=== PATIENT | male | born 1945 | race Caucasian/White ===

== ENCOUNTER 2016-04-22 11:40 | Observation (INO) | payer OTHER ==
[2016-04-22] VITALS (8 sets, daily range): BP systolic 141–179; BP diastolic 70–84; PULSE 67–78; RESP 18–21; TEMP 97.4–98.9; O2SAT 93–97
[~2016-04-22] VITALS: Ht 170.2 cm; Wt 79.6 kg
[~2016-04-22 11:40] MED LIST: ALBU0.63 IN; COMBAER INH; EZET10 PO; GLYB1TAB50 PO; GUAI100S6 PO; LISI-357 PO; METO50TA PO; MUCI600T PO; NITR.4 SL; OMEP20TA PO; PRAV40TA PO; PRED20 PO; ZITH250T PO; [UNRECOGNIZED DRUG - CODE] PO
--- NOTE | 2016-04-22 13:31 | PD ---
HPI Chief Complaint: chest pain Time Seen by Provider: 13:29 Travel History International Travel<30 days: No Contact w/Intl Traveler<30days: No History of Present Illness HPI Patient is a 71-year-old male with history of hypertension, diabetes, coronary disease, hyperlipidemia, CABG who presents to emergency room with complaints of chest pain. Patient reports that last night, he had some left-sided shoulder pain which radiates to his neck. Patient reports that symptoms lasted for a short time and resolved by the time he woke up this morning. Patient reports that prior to coming to the emergency room, he began to have some left-sided chest pain. Patient reports that he had sharp stabbing pains to his left chest , reports that he felt nauseous and diaphoretic with his symptoms. Reports that he has had heart attacks in the past, reports that symptoms were not similar to todays symptoms as they were less pronounced. Patient reports that he does follow with Dr. Ballard with cardiology and does report having a CABG with quadruple bypass in 2004. Patient reports that he currently is chest pain-free at this time. PFSH Past Medical History Asthma: Yes High Cholesterol: Yes Chest Pain: Yes Coronary Artery Disease: Yes Diabetes: Yes Hypertension: Yes Respiratory: Yes Past Surgical History Coronary Artery Bypass Graft: Yes Social History Alcohol Use: No Tobacco Use: No Substance Use: No Allergies-Medications (Allergen,Severity, Reaction): Coded Allergies: Oxycodone (Verified Allergy, Intermediate, Nausea/Vomiting, 04/22/16) Reported Meds & Prescriptions Reported Meds & Active Scripts Active Reported Atorvastatin (Atorvastatin Calcium) 10 Mg Tab 10 Mg PO HS Bupropion HCl 100 Mg Tab 100 Mg PO BID Temazepam 30 Mg Cap 30 Mg PO HS PRN Omeprazole 20 Mg Tab 20 Mg PO DAILY Lisinopril 5 Mg Tab 5 Mg PO DAILY Metformin (Metformin HCl) 500 Mg Tab 500 Mg PO BIDPC With meals Review of Systems Cardiovascular: Positive: Chest Pain or Discomfort, Diaphoresis Respiratory: Positive: Shortness of Breath Physical Exam Narrative GENERAL: No acute distress, nontoxic SKIN: Warm and dry. HEAD: Atraumatic. Normocephalic. EYES: Pupils equal and round. No scleral icterus. No injection or drainage. ENT: No nasal bleeding or discharge. Mucous membranes pink and moist. NECK: Trachea midline. No JVD. CARDIOVASCULAR: Regular rate and rhythm. No murmur appreciated. RESPIRATORY: No accessory muscle use. Clear to auscultation. Breath sounds equal bilaterally. GASTROINTESTINAL: Abdomen soft, non-tender, nondistended. Hepatic and splenic margins not palpable. MUSCULOSKELETAL: No obvious deformities. No clubbing. No cyanosis. No edema. NEUROLOGICAL: Awake and alert. No obvious cranial nerve deficits. Motor grossly within normal limits. Normal speech. PSYCHIATRIC: Appropriate mood and affect; insight and judgment normal. Data Data Last Documented VS Vital Signs Date Time Temp Pulse Resp B/P Pulse Ox O2 Delivery O2 Flow Rate FiO2 04/22/16 14:40 70 20 141/84 96 04/22/16 13:33 Nasal Cannula 04/22/16 13:29 98.9 Orders Aspirin Chew (Aspirin Chew) (04/22/16 13:45) Complete Blood Count With Diff (04/22/16 13:30) Comprehensive Metabolic Panel (04/22/16 13:30) Creatine Kinase (Cpk) (04/22/16 13:30) Troponin I (04/22/16 13:30) Act Partial Throm Time (Ptt) (04/22/16 13:30) Prothrombin Time / Inr (Pt) (04/22/16 13:30) Chest, Single Ap (04/22/16 ) Iv Access Insert/Monitor (04/22/16 13:30) Oxygen Administration (04/22/16 13:30) Ecg Monitoring (04/22/16 13:30) CKMB (04/22/16 12:30) CKMB% (04/22/16 12:30) Admit Order (Ed Use Only) (04/22/16 15:02) Labs Laboratory Tests Test 04/22/16 12:30 White Blood Count 4.2 TH/MM3 Red Blood Count 4.39 MIL/MM3 Hemoglobin 12.9 GM/DL Hematocrit 38.7 % Mean Corpuscular Volume 88.0 FL Mean Corpuscular Hemoglobin 29.3 PG Mean Corpuscular Hemoglobin 33.3 % Concent Red Cell Distribution Width 13.4 % Platelet Count 185 TH/MM3 Mean Platelet Volume 10.0 FL Neutrophils (%) (Auto) 75.2 % Lymphocytes (%) (Auto) 13.1 % Monocytes (%) (Auto) 10.1 % Eosinophils (%) (Auto) 0.9 % Basophils (%) (Auto) 0.7 % Neutrophils # (Auto) 3.2 TH/MM3 Lymphocytes # (Auto) 0.6 TH/MM3 Monocytes # (Auto) 0.4 TH/MM3 Eosinophils # (Auto) 0.0 TH/MM3 Basophils # (Auto) 0.0 TH/MM3 CBC Comment DIFF FINAL Differential Comment Prothrombin Time 11.1 SEC Prothromb Time International 1.0 RATIO Ratio Activated Partial 25.2 SEC Thromboplast Time Sodium Level 139 MEQ/L Potassium Level 3.9 MEQ/L Chloride Level 103 MEQ/L Carbon Dioxide Level 24.2 MEQ/L Anion Gap 12 MEQ/L Blood Urea Nitrogen 18 MG/DL Creatinine 1.00 MG/DL Estimat Glomerular Filtration 73 ML/MIN Rate Random Glucose 152 MG/DL Calcium Level 8.4 MG/DL Total Bilirubin 0.7 MG/DL Aspartate Amino Transf 26 U/L (AST/SGOT) Alanine Aminotransferase 26 U/L (ALT/SGPT) Alkaline Phosphatase 91 U/L Total Creatine Kinase 316 U/L Creatine Kinase MB 3.1 NG/ML Creatine Kinase MB % 1.0 % Troponin I LESS THAN 0.02 NG/ML Total Protein 7.3 GM/DL Albumin 3.7 GM/DL [facility] Medical Decision Making Medical Screen Exam Complete: Yes Emergency Medical Condition: Yes Interpretation(s) EKG at 1152: NSR at 66bpm, qt/qtc: 408/418, no acute st or t wave changes, diffuse t wave inversion Differential Diagnosis Chest pain, arrhythmia, ACS, electrolyte abnormality, PE, pneumothorax Narrative Course Patient is a 71-year-old male with history of coronary disease, hypertension, diabetes, hyperlipidemia, CABG with quadruple bypass in 2004, presents to emergency room with complaints of chest pain. Patient reports that last night, he had an episode of left-sided shoulder pain which radiates to his neck, reports that he had complete resolution of those symptoms this morning. Reports that he also had some left-sided chest pain today, reports pain is a sharp and stabbing pains to his chest which lasted a few minutes and resolved on its own. Patient reports that his son who is a nurse made him come to the emergency for evaluation as he has significant coronary disease. Patient with no chest pain at this time. EKG obtained upon presentation to emergency room. EKG at 1152 shows normal sinus rhythm at 66 bpm, QT/QTc 408/418, patient with T-wave inversions with no acute ST changes. Patient was placed on a bricklayer helper. Labs as well as cardiac enzymes, x-ray chest ordered. Well give patient a baby aspirin. Will continue to monitor patient CBC & BMP Diagram 04/22/16 12:30 Chest x-ray with no acute disease case reviewed with Dr. Medeiros who accepts pt to chest pain center Diagnosis Primary Impression: Chest pain Qualified Code: R07.9 - Chest pain, unspecified type Admitting Information Admitting Physician Requests: Observation Mary Andrews DO Apr 22, 2016 13:31
[2016-04-22 13:36] LABS: APTT (PATIENT) 25.2 SEC (24.3-30.1); PROTHROMBIN TIME - PATIENT 11.1 SEC (9.8-11.6)
[2016-04-22 13:38] LABS: AUTOMATED NEUTROPHIL # 3.2 TH/MM3 (1.8-7.7); BASOPHIL % 0.7 % (0.0-2.0); EOSINOPHIL % 0.9 % (0.0-4.0); HEMATOCRIT 38.7 % (39.0-51.0); HEMO FLAGS DIFF FINAL; LYMPH % 13.1 % (9.0-44.0); LYMPHOCYTE # 0.6 TH/MM3 (1.0-4.8); MEAN CORPUSCULAR HEMOGLOBIN 29.3 PG (27.0-34.0); MEAN CORPUSCULAR HGB CONC 33.3 % (32.0-36.0); MONO % 10.1 % (0.0-8.0); NEUT % 75.2 % (16.0-70.0); PLATELET COUNT 185 TH/MM3 (150-450); RED BLOOD COUNT 4.39 MIL/MM3 (4.50-5.90); RED CELL DISTRIBUTION WIDTH 13.4 % (11.6-17.2); WHITE BLOOD COUNT 4.2 TH/MM3 (4.0-11.0)
[2016-04-22] MEDS ORDERED: BUPR100T4 PO (13:40)
[2016-04-22] MEDS ORDERED: METF500T PO (13:40)
[2016-04-22] MEDS ORDERED: OMEP20TA PO (13:40)
[2016-04-22] MEDS ORDERED: LISI-519 PO (13:40)
[2016-04-22] MEDS ORDERED: TEMA30CA PO (13:40)
[2016-04-22] MEDS ORDERED: ATOR10TA15 PO (13:40)
[2016-04-22 13:41] LABS: CHLORIDE 103 MEQ/L (98-107); POTASSIUM 3.9 MEQ/L (3.5-5.1); SODIUM (NA) 139 MEQ/L (136-145)
[2016-04-22 13:45] LABS: ANION GAP 12 MEQ/L (5-15); BICARBONATE 24.2 MEQ/L (21.0-32.0); BLOOD UREA NITROGEN 18 MG/DL (7-18)
[2016-04-22] MEDS ORDERED: ASPIRIN 81 MG CHEW TAB PO ONE (13:45)
[2016-04-22 13:48] LABS: ALT (GPT) 26 U/L (12-78); AST (GOT) 26 U/L (15-37); GLOMERULAR FILTRATION RATE 73 ML/MIN (>89)
[2016-04-22 13:49] LABS: TOTAL BILIRUBIN ADULT 0.7 MG/DL (0.2-1.0)
[2016-04-22 13:51] LABS: ALKALINE PHOSPHATASE 91 U/L (45-117); CREATINE KINASE 316 U/L (39-308)
[2016-04-22 14:03] LABS: CKMB 3.1 NG/ML (0.5-3.6)
[2016-04-22] MEDS ORDERED: TEMAZEPAM 15 MG CAP PO PRN (15:00)
[2016-04-22] MEDS ORDERED: DEXTROSE 50% IN WATER 50 ML VIAL(D50) IV PUSH PRN (15:00)
[2016-04-22] MEDS ORDERED: SODIUM CHLORIDE 0.9% FLUSH 5 ML FLUSH IVF PRN (15:00)
[2016-04-22] MEDS ORDERED: NITROGLYCERIN 0.4 MG SL 25 TABS/BTL SL PRN (15:00)
[2016-04-22] MEDS ORDERED: MORPHINE SULFATE 4 MG/ML INJ IV PRN (15:00)
[2016-04-22] MEDS ORDERED: GLUCAGON 1 MG/ML VIAL OTHER PRN (15:00)
[2016-04-22] MEDS ORDERED: ACETAMINOPHEN 500 MG CPLT PO PRN (15:00)
--- NOTE | 2016-04-22 15:09 | HHI.HP ---
[facility] Primary Care Physician Anton Dailey MD Admission Diagnosis Diagnoses: Chief Complaint: Chest pain History of Present Illness Patient is a 71-year-old gentleman with a history of hypertension, diabetes and coronary artery disease with a heart bypass in 2004 who came to the emergency room today complaining of one day of left-sided chest pain which was severe and radiating to his back. He thought it was gas and took a nap and went to bed however he woke up sweaty and dizzy and felt as if he was balance only came to the emergency room. Patient has had cardiac enzymes and EKG done which not show any acute coronary events on my review. He does have a recent increase in postnasal drip and cough for which she was given Flonase by his primary care doctor. There's been no fevers or chills. Patient at this time is chest pain- free. He took aspirin but does not correlate that with any improvement in his symptoms. There is no aggravating factors in his symptoms. Patient's been admitted to the chest pain unit for further evaluation of atypical chest pain and patient multiple risk factors. Review of Systems Constitutional: COMPLAINS OF: Diaphoretic episodes, Dizziness, DENIES: Fatigue , Fever, Weight gain, Weight loss, Chills, Change in appetite, Night Sweats Endocrine: DENIES: Heat/cold intolerance, Polydipsia, Polyuria, Polyphagia Eyes: DENIES: Blurred vision, Diplopia, Eye inflammation, Eye pain, Vision loss , Photosensitivity, Double Vision Ears, nose, mouth, throat: DENIES: Tinnitus, Hearing loss, Vertigo, Nasal discharge, Oral lesions, Throat pain, Hoarseness, Ear Pain, Running Nose, Epistaxis, Sinus Pain, Toothache, Odynophagia Respiratory: COMPLAINS OF: Cough, DENIES: Apneas, Snoring, Wheezing, Hemoptysis, Sputum production, Shortness of breath Cardiovascular: COMPLAINS OF: Chest pain, DENIES: Palpitations, Syncope, Dyspnea on Exertion, PND, Lower Extremity Edema, Orthopnea, Claudication Gastrointestinal: DENIES: Abdominal pain, Black stools, Bloody stools, Constipation, Diarrhea, Nausea, Vomiting, Difficulty Swallowing, Anorexia Genitourinary: DENIES: Sexual dysfunction, Urinary frequency, Urinary incontinence, Urgency, Hematuria, Dysuria, Nocturia, Penile Discharge, Testicular Pain, Testicular Swelling Musculoskeletal: COMPLAINS OF: Back pain, DENIES: Joint pain, Muscle aches, Stiffness, Joint Swelling, Neck pain Integumentary: DENIES: Abnormal pigmentation, Nail changes, Pruritus, Rash Hematologic/lymphatic: DENIES: Bruising, Lymphadenopathy Immunologic/allergic: DENIES: Eczema, Urticaria Neurologic: DENIES: Abnormal gait, Headache, Localized weakness, Paresthesias, Seizures, Speech Problems, Tremor, Poor Balance Psychiatric: DENIES: Anxiety, Confusion, Mood changes, Depression, Hallucinations, Agitation, Suicidal Ideation, Homicidal Ideation, Delusions Past Family Social History Past Medical History Coronary artery disease Depression Diabetes mellitus Hypertension Past Surgical History cabg 2005 Colon resection right ankle Barretts esophagus Reported Medications Reviewed and the medical record, recently started Flonase for of cough and postnasal drip per his primary doctor Allergies: Coded Allergies: Oxycodone (Verified Allergy, Intermediate, Nausea/Vomiting, 04/22/16) Active Ordered Medications Reviewed in the medical record Family History Mother at 81, father at 55 motor vehicle accident, sister was 70 and from constipation as of multiple medical problems including diabetes and hypertension Social History He is a , lives with his 3 sons, no tobacco or alcohol Physical Exam Vital Signs Vital Signs Date Time Temp Pulse Resp B/P Pulse Ox O2 Delivery O2 Flow Rate FiO2 04/22/16 14:40 70 20 141/84 96 04/22/16 13:37 70 20 142/72 94 04/22/16 13:33 Nasal Cannula 04/22/16 13:29 98.9 71 20 150/74 96 Physical Exam GENERAL: This is a well-nourished, well-developed patient, in no apparent distress. SKIN: No rashes, ecchymoses or lesions. Cool and dry. HEAD: Atraumatic. Normocephalic. No temporal or scalp tenderness. EYES: Pupils equal round and reactive. Extraocular motions intact. No scleral icterus. No injection or drainage. ENT: Nose without bleeding, purulent drainage or septal hematoma. Throat without erythema, tonsillar hypertrophy or exudate. Uvula midline. Airway patent. NECK: Trachea midline. No JVD or lymphadenopathy. Supple, nontender, no meningeal signs. CARDIOVASCULAR: Regular rate and rhythm without murmurs, gallops, or rubs. RESPIRATORY: Clear to auscultation. Breath sounds equal bilaterally. No wheezes , rales, or rhonchi. GASTROINTESTINAL: Abdomen soft, non-tender, nondistended. No hepato-splenomegaly , or palpable masses. No guarding. MUSCULOSKELETAL: Extremities without clubbing, cyanosis, or edema. No joint tenderness, effusion, or edema noted. No calf tenderness. Negative Homans sign bilaterally. NEUROLOGICAL: Awake and alert. [place]/hearing aides. Motor and sensory grossly within normal limits. Five out of 5 muscle strength in all muscle groups. Normal speech. Laboratory Laboratory Tests Test 04/22/16 12:30 White Blood Count 4.2 Red Blood Count 4.39 Hemoglobin 12.9 Hematocrit 38.7 Mean Corpuscular Volume 88.0 Mean Corpuscular Hemoglobin 29.3 Mean Corpuscular Hemoglobin 33.3 Concent Red Cell Distribution Width 13.4 Platelet Count 185 Mean Platelet Volume 10.0 Neutrophils (%) (Auto) 75.2 Lymphocytes (%) (Auto) 13.1 Monocytes (%) (Auto) 10.1 Eosinophils (%) (Auto) 0.9 Basophils (%) (Auto) 0.7 Neutrophils # (Auto) 3.2 Lymphocytes # (Auto) 0.6 Monocytes # (Auto) 0.4 Eosinophils # (Auto) 0.0 Basophils # (Auto) 0.0 CBC Comment DIFF FINAL Differential Comment Prothrombin Time 11.1 Prothromb Time International 1.0 Ratio Activated Partial 25.2 Thromboplast Time Sodium Level 139 Potassium Level 3.9 Chloride Level 103 Carbon Dioxide Level 24.2 Anion Gap 12 Blood Urea Nitrogen 18 Creatinine 1.00 Estimat Glomerular Filtration 73 Rate Random Glucose 152 Calcium Level 8.4 Total Bilirubin 0.7 Aspartate Amino Transf 26 (AST/SGOT) Alanine Aminotransferase 26 (ALT/SGPT) Alkaline Phosphatase 91 Total Creatine Kinase 316 Creatine Kinase MB 3.1 Creatine Kinase MB % 1.0 Troponin I LESS THAN 0.02 Total Protein 7.3 Albumin 3.7 Result Diagram: 04/22/16 1230 04/22/16 1230 Assessment and Plan Problem List: (1) Chest pain ICD Code: R07.9 Status: Acute Plan: Atypical and with risk factors including age, previous cardiac history, diabetes and hypertension Patient will require stress testing. He does follow-up with Dr. Crain or We'll follow cardiac enzymes and EKG Morphine, oxygen, nitroglycerin, aspirin as needed for symptom control CPK is somewhat elevated, will add IV fluids for mild rhabdomyolysis (2) DM2 (diabetes mellitus, type 2) ICD Code: E11.9 Status: Acute Plan: We'll hold metformin, continue with sliding scale insulin Assessment and Plan We'll continue with Flonase for his postnasal drip. Follow up with supportive care for any coughing symptoms. Continue medications for Roca's esophagus and for hypertension which are currently controlled Code Status Full code Discussed Condition With Patient, ER M.D. 10 Problem Qualifiers (1) Chest pain: Qualified Code: R07.9 - Chest pain, unspecified type Henrietta Medeiros MD Apr 22, 2016 15:09
[2016-04-22] MEDS: INSULIN NovoLIN REGULAR SUPPLEMENTAL SCALE SQ SCH ×2 (16:00→21:00)
[2016-04-22 16:06] LABS: CREATINE KINASE 265 U/L (39-308)
[2016-04-22 16:19] LABS: CKMB 2.6 NG/ML (0.5-3.6)
[2016-04-22] MEDS: SODIUM CHLOR 0.9% 1000 ML INJ 1,000 ML IV SCH ×2 (16:23→18:00)
[2016-04-22 20:16] LABS: CREATINE KINASE 237 U/L (39-308)
[2016-04-22 20:28] LABS: CKMB 2.3 NG/ML (0.5-3.6)
[2016-04-22] MEDS: buPROPion HCL 100 MG TAB PO SCH (21:00)
[2016-04-22] MEDS ORDERED: ATORVASTATIN 10 MG TAB PO SCH (21:00)
[2016-04-22] MEDS: SODIUM CHLORIDE 0.9% FLUSH 5 ML FLUSH IVF SCH (21:00)
[2016-04-23] VITALS: BP 152/77; PULSE 70; RESP 18; TEMP 96.9; O2SAT 97
[2016-04-23 04:00] VITALS: BP 142/85; PULSE 65; RESP 18; TEMP 96.2; O2SAT 96
[2016-04-23] MEDS: INSULIN NovoLIN REGULAR SUPPLEMENTAL SCALE SQ SCH ×2 (06:07→11:00)
[2016-04-23 08:00] VITALS: BP 157/93; PULSE 65; RESP 20; TEMP 97.3; O2SAT 97
--- NOTE | 2016-04-23 08:12 | HHI.PR ---
Subjective Remarks Follow up for chest pain. Patient is pain-free at this time. Denies any shortness of breath. Patient has a cough which started one week ago but it is dry. He initially states he had a stress test over 1 year ago at the [facility] which was negative, but then later tells me he had a stress test either last year or the year prior at [facility], but he cannot remember. Objective Vitals Vital Signs Date Time Temp Pulse Resp B/P Pulse Ox O2 Delivery O2 Flow Rate FiO2 04/23/16 04:00 96.2 65 18 142/85 96 04/23/16 00:00 96.9 70 18 152/77 97 04/22/16 20:00 97.5 78 18 155/82 97 04/22/16 20:00 74 04/22/16 19:45 93 21 04/22/16 18:11 96 21 04/22/16 18:00 97.4 67 21 179/79 96 04/22/16 15:40 76 20 145/70 95 04/22/16 14:40 70 20 141/84 96 04/22/16 13:37 70 20 142/72 94 04/22/16 13:33 Nasal Cannula 04/22/16 13:29 98.9 71 20 150/74 96 I/O 04/22/16 04/22/16 04/22/16 04/23/16 04/23/16 04/23/16 07:00 15:00 23:00 07:00 15:00 23:00 Intake Total 240 ml 1033 ml Output Total 150 ml Balance 90 ml 1033 ml Intake Oral 240 ml 240 ml IV Total 793 ml Output Urine Total 150 ml # Voids 3 2 # Bowel Movements 0 0 Result Diagram: 04/22/16 1230 04/22/16 1230 Objective Remarks GENERAL: Elderly well-nourished well-developed patient in no apparent distress. SKIN: Warm and dry. CARDIOVASCULAR: Regular rate and rhythm. RESPIRATORY: No accessory muscle use. Clear to auscultation. Breath sounds equal bilaterally. GASTROINTESTINAL: Abdomen soft, non-tender, nondistended. MUSCULOSKELETAL: No lower extremity edema. NEUROLOGICAL: Awake and alert.Motor grossly within normal limits. Normal speech. PSYCHIATRIC: Normal mood and affect. Urinary Catheter: No Vascular Central Line Catheter: No A/P Problem List: (1) Chest pain ICD Code: R07.9 Status: Acute (2) DM2 (diabetes mellitus, type 2) ICD Code: E11.9 Status: Acute (3) Hypertension, uncontrolled ICD Code: I10 Status: Acute Assessment and Plan Chest Pain -Atypical and with risk factors including age, previous cardiac history, diabetes and hypertension -EKGs [address]-T changes in the inferior and lateral leads as well as V4. EKG from May 2010 is unable to be opened for review. -Troponin 3 less than 0.02. -Sees Dr. Mckenzie. Patient cannot recall exactly when his last stress test was. Will try to obtain records from [facility], but likely will have to order new stress test. -Morphine, oxygen, nitroglycerin, aspirin as needed for symptom control -CPK is somewhat elevated, continue V fluids for mild rhabdomyolysis. Repeat CPK pending. Diabetes mellitus, Type 2 -Hold metformin for stress test -Continue with bedside Accu-Cheks and sliding scale insulin HTN, uncontrolled: BP has been elevated. -Continue home lisinopril -Clonidine prn SBP >160 or DBP >90. Continue with Flonase for his postnasal drip. Follow up with supportive care for any coughing symptoms. Continue medications for Roca's esophagus, HLD. Myocardial perfusion scan negative. EF of 55%. Results discussed with patient. Telemetry had one episode of tachycardia but otherwise no acute changes. Discharge disposition: Home in stable condition. Diet: Heart healthy, diabetic Activity: Regular Medications: BP has been persistently elevated since arrival. Increase Lisinopril to 10 mg by mouth daily. Continue other home meds. Follow-up: PCP Dr. Dailey one week. Problem Qualifiers (1) Chest pain: Qualified Code: R07.9 - Chest pain, unspecified type Ariadna Villanueva Apr 23, 2016 08:12
[2016-04-23 08:50] VITALS: PULSE 60
[2016-04-23] MEDS: buPROPion HCL 100 MG TAB PO SCH (08:50)
[2016-04-23] MEDS: SODIUM CHLORIDE 0.9% FLUSH 5 ML FLUSH IVF SCH (08:51)
[2016-04-23] MEDS ORDERED: PANTOPRAZOLE SOD 20 MG DELAYED RELEASE TAB PO SCH (09:00)
[2016-04-23] MEDS ORDERED: LISINOPRIL 5 MG TAB PO SCH (09:00)
[2016-04-23 09:19] VITALS: O2SAT 96
[2016-04-23 12:00] VITALS: BP 163/86; PULSE 68; RESP 20; TEMP 97.2; O2SAT 95
[2016-04-23] MEDS ORDERED: REGADENOSON INJ 0.4 MG/5 ML SYR IV ONE (12:03)
--- NOTE | 2016-04-23 13:52 | RADHPO ---
EXAM DATE/TIME: 04/23/2016 12:10 [facility] COMPARISON: No previous studies available for comparison. INDICATIONS : Left shoulder pain radiating to the left neck later having left chest pain with nausea and diaphoresi s. Abnormal EKG. DOSE: 25.3 mCi Tc99m Myoview at stress. 8 mCi Tc99m Myoview at rest. 0.4 mg Lexiscan STRESS SYMPTOMS: None noted. EJECTION FRACTION: 55% MEDICAL HISTORY : Diabetes mellitus type 2. Hypertension. SURGICAL HISTORY : CABG ENCOUNTER: Initial ACUITY: 2 days PAIN SCALE: 5/10 LOCATION: Left chest TECHNIQUE: The patient underwent pharmacologic stress with infusion of prescribed dose. Continuous ECG tracing was monitored during stress. Gated SPECT imaging was performed after stress and conventional SPECT i maging was performed at rest. The examination was performed on a SPECT/CT scanner, both attenuation and non-corrected datasets were reviewed. FINDINGS: DISTRIBUTION: The maximum perfused segment at stress is in the lateral wall. PERFUSION STUDY: The pattern of perfusion at stress is within normal limits. GATED STUDY: There is intact wall motion and thickening without hypokinetic or dyskinetic segments. CONCLUSION: No areas of ischemia are seen. RISK CATEGORY: Low (<1% Annual Mortality Rate) Guanaco Rodríguez MD on April 23, 2016 at 13:49 Board Certified Radiologist. This report was verified electronically.
[2016-04-23] MEDS ORDERED: LISI10TA3 PO (15:19)
--- NOTE | 2016-04-23 15:20 | HHI.DCPOC ---
Discharge Care Plan Diagnosis: (1) Chest pain (2) Hypertension, uncontrolled Your Health Problems Are: Chest Pain Goals to Promote Your Health * To prevent worsening of your condition and complications * To maintain your health at the optimal level Directions to Meet Your Goals Take your medications as prescribed Follow your dietary instruction Follow activity as directed Keep your appointments as scheduled Take your immunizations and boosters as scheduled If your symptoms worsen call your PCP, if no PCP go to Urgent Care Center or Emergency Room Smoking is Dangerous to Your Health. Avoid second hand smoke Call the 24-hour hour crisis hotline for domestic abuse at Ariadna Villanueva Apr 23, 2016 15:20
--- NOTE | 2016-04-23 15:21 | TR ---
Date Performed: 04/23/2016 Time Performed: 12:20:20 DOCTOR: Anton East DRUG LIST: CLINICAL HISTORY: REASON FOR TEST: Chest pain REASON FOR ENDING: OBSERVATION: CONCLUSION: Lexiscan stress test was performed under standard four minute protocol. Radionuclid e was injected one minute prior to ending the test. No electrocardiographic abormalities were present to suggest ischemia. Nuclear imaging and interpretation are pending. COMMENTS:
--- NOTE | 2016-04-23 15:24 | EKG ---
Date Performed: 04/22/2016 Time Performed: 19:19:20 PTAGE: 71 years EKG: Sinus rhythm Extensive ST-T changes are nonspecific PACs Borderline ECG PREVIOUS TRACING : 04/22/2016 15.32 Since previous tracing, no significant change noted DOCTOR: Anton East Interpretating Date/Time 04/23/2016 15:22:46
--- NOTE | 2016-04-23 15:27 | EKG ---
Date Performed: 04/22/2016 Time Performed: 15:32:04 PTAGE: 71 years EKG: Sinus rhythm . Extensive T wave changes are nonspecific Borderline ECG NO PREVIOUS TRACING DOCTOR: Anton East Interpretating Date/Time 04/23/2016 15:26:41
--- NOTE | 2016-04-23 15:29 | EKG ---
Date Performed: 04/22/2016 Time Performed: 11:52:08 PTAGE: 71 years EKG: Sinus rhythm . Nonspecific ST and T wave abnormalities Abnormal ECG Since PREVIOUS TRACING , no significant change noted DOCTOR: Anton East Interpretating Date/Time 04/23/2016 15:28:50
[2016-04-23] MEDS ORDERED: cloNIDine HCL 0.1 MG TAB PO PRN (15:30)
--- NOTE | 2016-04-26 14:53 | RADHPO ---
EXAM DATE/TIME: 04/22/2016 12:12 [facility] COMPARISON: No previous studies available for comparison. INDICATIONS : Chest pain for 5 days, cough for 2 weeks MEDICAL HISTORY : None. SURGICAL HISTORY : CABG. ENCOUNTER: Initial ACUITY: 4 - 6 days PAIN SCORE: 5/10 LOCATION: Bilateral chest FINDINGS: The patient is status post sternotomy. The heart size is normal. The lungs are grossly clear. No effu lawrence is seen. CONCLUSION: No acute disease. Guanaco Rodríguez MD on April 22, 2016 at 12:36 Board Certified Radiologist. This report was verified electronically.
== END 2016-04-23 15:15 | disposition home or self-care (01) ==
LOC: PHED 11:40 → PHEDA 15:03 → PH3B 17:35
PROVIDERS: ADMIT Hospitalist; ATTEND Hospitalist
DX: R07.89 Other chest pain (principal); I25.10 Atherosclerotic heart disease of native coronary artery without angina pectoris; I10 Essential (primary) hypertension; E78.5 Hyperlipidemia, unspecified; K22.70 Barrett's esophagus without dysplasia; E11.9 Type 2 diabetes mellitus without complications; J45.909 Unspecified asthma, uncomplicated; E78.00 Pure hypercholesterolemia, unspecified; F32.9 Major depressive disorder, single episode, unspecified; Z88.8 Allergy status to other drugs, medicaments and biological substances; Z95.1 Presence of aortocoronary bypass graft
CPT/HCPCS: 71010; 78452; 80053; 82550; 82552; 82948; 84484; 85025; 85610; 85730; 93005; 93017; 99285; A9502; G0378; J2785; J7030

== ENCOUNTER 2016-08-17 13:48 | Emergency (ER) | payer OTHER ==
[~2016-08-17] VITALS: Ht 170.2 cm; Wt 81.0 kg
[~2016-08-17 13:48] MED LIST changes: -ALBU0.63 IN; +ATOR10TA15 PO; +BUPR100T4 PO; -COMBAER INH; -EZET10 PO; -GLYB1TAB50 PO; -GUAI100S6 PO; -LISI-357 PO; +LISI10TA3 PO; +METF500T PO; -METO50TA PO; -MUCI600T PO; -NITR.4 SL; -PRAV40TA PO; -PRED20 PO; +TEMA30CA PO; -ZITH250T PO; -[UNRECOGNIZED DRUG - CODE] PO
[2016-08-17 13:56] VITALS: BP 182/85; PULSE 65; RESP 16; TEMP 98.6; O2SAT 96
--- NOTE | 2016-08-17 14:22 | PD ---
HPI Chief Complaint: Fall Time Seen by Provider: 13:45 Travel History International Travel<30 days: No Contact w/Intl Traveler<30days: No Traveled to known affect area: No History of Present Illness HPI 71-year-old male presents emergency department for evaluation the posterior had black status post fall from a ladder prior to arrival. Patient reports he was approximately 4-5 steps up on the ladder when the ladder broke causing him to fall onto his back hitting his head. He denies loss of consciousness. Patient is not anticoagulated. Patient is reporting posterior head pain and low back pain. He denies headache, visual changes, chest pain, shortness of breath, abdominal pain, numbness/tingling/weakness in extremities. PFSH Past Medical History Asthma: Yes High Cholesterol: Yes Chest Pain: Yes Coronary Artery Disease: Yes Diabetes: Yes Hypertension: Yes Respiratory: Yes Past Surgical History Coronary Artery Bypass Graft: Yes Social History Alcohol Use: No Tobacco Use: No Substance Use: No Allergies-Medications (Allergen,Severity, Reaction): Coded Allergies: Oxycodone (Verified Allergy, Intermediate, Nausea/Vomiting, 04/22/16) Reported Meds & Prescriptions Reported Meds & Active Scripts Active Lisinopril 10 Mg Tab 10 Mg PO DAILY Reported Atorvastatin (Atorvastatin Calcium) 10 Mg Tab 10 Mg PO HS Bupropion HCl 100 Mg Tab 100 Mg PO BID Temazepam 30 Mg Cap 30 Mg PO HS PRN Omeprazole 20 Mg Tab 20 Mg PO DAILY Metformin (Metformin HCl) 500 Mg Tab 500 Mg PO BIDPC With meals Review of Systems Except as stated in HPI: all other systems reviewed are Neg General / Constitutional: No: Fever Eyes: No: Visual changes HENT: Positive: Other (posterior head pain at the site of the laceration), No : Headaches Physical Exam Narrative GENERAL: [Alert, elderly male in no acute distress.] SKIN: Focused skin assessment warm/dry. 2 x 3 cm avulsion skin injury to the scalp bleeding well controlled. HEAD: Normocephalic. EYES: Pupils equal and round. No scleral icterus. No injection or drainage. ENT: No nasal bleeding or discharge. Mucous membranes pink and moist. NECK: Trachea midline. No JVD. No cervical spine tenderness CARDIOVASCULAR: Regular rate and rhythm. No murmur appreciated. CHEST: No chest wall or rib tenderness. No crepitus. RESPIRATORY: No accessory muscle use. Clear to auscultation. Breath sounds equal bilaterally. GASTROINTESTINAL: Abdomen soft, non-tender, nondistended. Hepatic and splenic margins not palpable. MUSCULOSKELETAL: No obvious deformities. No clubbing. No cyanosis. No edema. No point tenderness in all 4 extremities. 2+ distal pulses. No deformity. No physical signs of trauma. NEUROLOGICAL: Awake and alert. No obvious cranial nerve deficits. Motor grossly within normal limits. Normal speech. 5 out of 5 strength in upper and lower extremities PSYCHIATRIC: Appropriate mood and affect; insight and judgment normal. Data Data Last Documented VS Vital Signs Date Time Temp Pulse Resp B/P Pulse Ox O2 Delivery O2 Flow Rate FiO2 08/17/16 16:10 75 16 185/88 100 Room Air 08/17/16 13:[address] Cerv Spine W/O Contrast (08/17/16 ) Ct Brain W/O Iv Contrast(Rout) (08/17/16 ) Spine, Lumbar Comp W/Obliq (08/17/16 ) Ondansetron Inj (Zofran Inj) (08/17/16 15:45) Acetaminophen (Tylenol) (08/17/16 16:00) MDM Medical Decision Making Medical Screen Exam Complete: Yes Emergency Medical Condition: Yes Differential Diagnosis Closed head injury, ICH, cervical fracture, cervical strain, lumbar strain, lumbar fracture Narrative Course 71-year-old male presents emergency Department status post fall from a ladder. Patient was approximately 4 rungs. He fell backwards after the ladder broke hitting his head and low back. He denies loss of consciousness. Patient is not anticoagulated. She is alert and oriented. His physical exam is reassuring. He has an avulsion skin injury to the posterior portion of his head. Bleeding is well-controlled. Patient has no chest, abdomen, pelvic pain. CT scan of the brain, cervical spine and x-ray lumbar spine pending. Nursing staff report the patient became nauseous while being wheeled over to CAT scan he vomited small amounts of liquid 2 times. Patient was reevaluated after CAT scans. He denies nausea and reports only moderate pain low back. Normal neuro exam. CT of brain: No acute intra-cranial abnormality. CT cervical spine: Negative for fracture. Lumbar spine x-ray: Negative for fracture. Diagnostic findings discussed with patient. The wound was cleansed and dressed. He was given a copy of his CAT scan report and instructed to follow up with his primary care doctor regarding the incidental finding. Patient was reporting no pain at this time. Tylenol was ordered patient reports he doesn't need it. Patient ambulate in room without difficulty. He is stable for discharge. Diagnosis Primary Impression: Closed head injury Qualified Code: S09.90XA - Closed head injury, initial encounter Additional Impressions: Lumbar strain Qualified Code: S39.012A - Lumbar strain, initial encounter Laceration of scalp Qualified Code: S01.01XA - Laceration of scalp, initial encounter Referrals: Primary Care Physician Additional Instructions: Take Tylenol as needed for pain. Medical clinic for follow-up with her primary care physician. Return to emergency department if he developed new or worsening symptoms such as severe headache, neck pain, chest or abdominal pain. You're CT scan of the brain showed a small area of decreased density in the left lateral ventricle. Recommended an outpatient MRI. You were given a reported this scan please follow up with her primary care doctor. Disposition: 01 DISCHARGE HOME Condition: Stable Deanna Dickey Aug 17, 2016 14:22
--- NOTE | 2016-08-17 15:12 | RADRPT ---
EXAM DATE/TIME: 08/17/2016 14:44 [facility] COMPARISON: No previous studies available for comparison. INDICATIONS : Fall from ladder. Posterior head/neck pain. RADIATION DOSE: 56.35 CTDIvol (mGy) MEDICAL HISTORY : Hypertension. Cardiovascular disease SURGICAL HISTORY : CABG ENCOUNTER: Initial ACUITY: 1 day PAIN SCALE: 3/10 LOCATION: occipital TECHNIQUE: Multiple contiguous axial images were obtained of the head. Using automated exposure control and adj ustment of the mA and/or kV according to patient size, radiation dose was kept as low as reasonably a chievable to obtain optimal diagnostic quality images. DICOM format image data is available electro nically for review and comparison. FINDINGS: CEREBRUM: The ventricles are normal for age. There is bilateral cortical atrophy. No evidence of midline shift, mass lesion, hemorrhage. There is a small area decreased density adjacent to the anterior left later al ventricle. No extra-axial fluid collections are seen. POSTERIOR FOSSA: The cerebellum and brainstem are intact. The 4th ventricle is midline. The cerebellopontine angle i s unremarkable. EXTRACRANIAL: The visualized portion of the orbits is intact. SKULL: The calvaria is intact. No evidence of skull fracture. CONCLUSION: 1. No acute intracranial hemorrhage. 2. Small area of decreased density adjacent to the anterior left lateral ventricle. This is suggestiv e of either a subacute or old infarct. Recommend MRI of the brain with and without contrast for furth er evaluation. This can be performed on a nonemergent outpatient basis. Beni Shearer MD on August 17, 2016 at 15:07 Board Certified Radiologist. This report was verified electronically.
--- NOTE | 2016-08-17 15:27 | RADRPT ---
EXAM DATE/TIME: 08/17/2016 15:11 [facility] COMPARISON: No previous studies available for comparison. INDICATIONS : Fell off a ladder. MEDICAL HISTORY : fell off of a ladder in 1970. SURGICAL HISTORY : None. ENCOUNTER: Initial ACUITY: 1 day PAIN SCORE: 8/10 LOCATION: Bilateral lumbar spine FINDINGS: There are five non-rib bearing vertebral bodies. The vertebral bodies are in normal alignment withou t evidence of subluxation or scoliosis. The disc spaces are maintained with some mild narrowing at L 5-S1. Mild degenerative changes L5-S1.. The posterior elements are intact without evidence of spondy lolysis. The pedicles are intact. Bony mineralization is normal. No fracture is identified. Athero sclerotic changes in the aorta. CONCLUSION: Mild degenerative type changes at L5-S1 with some disc space narrowing. No compression fractures. Beni Shearer MD on August 17, 2016 at 15:23 Board Certified Radiologist. This report was verified electronically.
[2016-08-17 15:37] VITALS: BP 213/96; PULSE 68; RESP 16; O2SAT 96
--- NOTE | 2016-08-17 15:39 | RADRPT ---
EXAM DATE/TIME: 08/17/2016 14:43 [facility] COMPARISON: No previous studies available for comparison. INDICATIONS : Fall from ladder. Posterior head/neck pain. RADIATION DOSE: 32.92 CTDIvol (mGy) MEDICAL HISTORY : Cardiovascular disease. Hypertension. SURGICAL HISTORY : CABG ENCOUNTER: Initial ACUITY: 1 day PAIN SCALE: 3/10 LOCATION: neck TECHNIQUE: Volumetric scanning of the cervical spine was performed. Multiplanar reconstructions in the sagittal, coronal and oblique axial planes were performed. Using automated exposure control and adjustment o f the mA and/or kV according to patient size, radiation dose was kept as low as reasonably achievable to obtain optimal diagnostic quality images. DICOM format image data is available electronically f or review and comparison. FINDINGS: There is normal sagittal spine alignment of the cervical spine. No anterolisthesis or retrolisthesis is present. The atlantoaxial relationship is within normal limits. There is no prevertebral soft tiss ue swelling present. No fracture or dislocation is identified. No disc herniation is visualized in th e upper cervical spine. There is severe left facet arthrosis at C3-C4 causing severe left neural fora elias narrowing. There is severe right facet arthrosis at C4-C5 along with uncovertebral osteophytes causing severe narrowing of the neural foramen. The visualized portions of the posterior fossa, paraspinous soft tissues, and upper lung zones demons trate no acute abnormality. CONCLUSION: 1. No acute cervical spine abnormality is identified. No fracture is seen. 2. Multilevel degenerative change with severe neural foraminal stenosis on the left at C3-C4 and on t he right at C4-C5. Guanaco Shultz MD on August 17, 2016 at 15:32 Board Certified Radiologist. This report was verified electronically.
[2016-08-17] MEDS ORDERED: ONDANSETRON HCL 4 MG/2 ML VIAL IV PUSH ONE (15:45)
[2016-08-17] MEDS ORDERED: ACETAMINOPHEN 325 MG TAB PO ONE (16:00)
[2016-08-17 16:10] VITALS: BP 185/88; PULSE 75; RESP 16; O2SAT 100
[2016-08-17 16:33] VITALS: BP 182/81
== END 2016-08-17 16:36 | disposition home or self-care (01) ==
LOC: NEPD 13:48
DX: S01.01XA Laceration without foreign body of scalp, initial encounter (principal); S39.012A Strain of muscle, fascia and tendon of lower back, initial encounter; W11.XXXA Fall on and from ladder, initial encounter
CPT/HCPCS: 70450; 72110; 72125